=== PATIENT | male | born 1990 | race Caucasian/White ===

== ENCOUNTER 2021-05-03 20:57 | Emergency (ER) | payer OTHER ==
--- NOTE | 2021-05-03 21:47 | XRAY Report ---
PROCEDURE: Shoulder 3 View LT INDICATIONS: fall with shoulder injury TECHNIQUE: 3 views of the shoulder were acquired. COMPARISON: None. FINDINGS: Bones: No fractures or dislocations. No suspicious bony lesions. Visualized ribs appear intact. Soft tissues: No suspicious soft tissue calcifications. IMPRESSION: No visualized acute fracture or dislocation. However, occult injury cannot be excluded. Recommend short interval imaging follow-up in 7-10 days as clinically indicated for additional evalua tion. Reviewed by: Sherly Davis MD on 05/03/2021 9:46 PM PDT Approved by: Sherly Davis MD on 05/03/2021 9:46 PM PDT Station ID: [id number]
--- NOTE | 2021-05-03 22:02 | ED Physician Documentation ---
PD HPI UPPER EXT INJURY - Stated complaint Stated Complaint: LT SHOULDER INJ - Chief complaint Chief Complaint: Ext Problem - History obtained from History obtained from: Patient - History of Present Illness Location: Left, Shoulder Type of injury: Fall (Playing soccer and fell onto the left shoulder with pain in the scapula and AC area. Hurts to breathe and move the shoulder. 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) Timing - details: Abrupt onset, Still present Worsened by: Moving, Palpating (left posterior shoulder and AC area), Other (hurts scapular area with breathing as well.) Associated symptoms: No: Weakness, Numbness Similar symptoms before: Has not had sx before Review of Systems Constitutional: denies: Fever, Chills Nose: denies: Rhinorrhea / runny nose, Congestion Throat: denies: Sore throat Cardiac: denies: Chest pain / pressure Respiratory: denies: Cough Musculoskeletal: denies: Neck pain Neurologic: denies: Focal weakness, Numbness, Altered mental status, Headache PD PAST MEDICAL HISTORY - Past Medical History Past Medical History: No - Allergies Allergies/Adverse Reactions: Allergies Allergy/AdvReac Type Severity Reaction Status Date / Time No Known Drug Allergies Allergy Verified 05/03/21 21:01 PD ED PE NORMAL - Vitals Vital signs reviewed: Yes - General General: Alert and oriented X 3, Well developed/nourished, Other (Holding his left arm dangling straight downwards without movement of the left shoulder as this causes pain.) - Neck Neck: Supple, no meningeal sign, No bony TTP - Respiratory Respiratory: Clear bilaterally, Other (No rib tenderness. There is some tenderness in the suprascapular area.) - Derm Derm: Normal color, Warm and dry - Extremities Extremities: Other (He is tender in the AC joint with a mild step-off in that location. There is also some suprascapular and posterior shoulder tenderness. Limited range of motion due to pain. Passive range of motion without any gross laxity. 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 Lungs and ribs appear normal in the area. ), See rad report PD MEDICAL DECISION MAKING - ED course Complexity details: considered differential (Seems likely some AC injury as well as some rotator cuff injury given pain in the scapula to shoulder area and hurting with range of motion.), d/w patient Departure - Departure Disposition: 01 Home, Self Care Clinical Impression: AC separation Qualifiers: Encounter type: initial encounter Laterality: left Qualified Code(s): S43.102A - Unspecified dislocation of left acromioclavicular joint, initial encounter Rotator cuff strain Qualifiers: Encounter type: initial encounter Laterality: left Qualified Code(s): S46.012A - Strain of muscle(s) and tendon(s) of the rotator cuff of left shoulder, initial encounter Condition: Stable Record reviewed to determine appropriate education?: Yes Instructions: ED Sprain AC Joint, ED Torn Rotator Cuff Follow-Up: [facility] [Provider Group] Comments: Use the sling to support the shoulder. Minimal gentle range of motion periodically to reduce stiffness of the shoulder. In particular no reaching above shoulder height, lifting, push pull or rotation with the shoulder for the next week. Follow-up with your primary care in about a week to reevaluate the shoulder once the initial pain and inflammation have improved. Use some anti-inflammatory such as ibuprofen 3 times a day. To that add Tylenol every 4 hours if needed for pain. We did send you home with 4 opioid pain pills to use every 6 hours if needed. This should last the first day or 2 and then ibuprofen or Tylenol should be sufficient from there. Your x-ray does not show any fractures. It does appear likely there is some mild separation of the AC ligaments. Given your pain location, I would also think you may have some rotator cuff injury as well. This is likely to be a 3 or 4-week healing process but you would want to follow-up with your primary care or orthopedics in about a week to assess. Discharge Date/Time: 05/03/21 22:36
[2021-05-03] MEDS ORDERED: ACETAMINOPHEN 325 MG TABLET PO STA (22:16)
[2021-05-03] MEDS ORDERED: HYDROcod/ACET 5/325 Prepack 4 PO STA (22:16)
[2021-05-03] MEDS ORDERED: IBUPROFEN 600 MG TABLET PO STA (22:16)
[2021-05-03 22:38] VITALS: BP 135/84
== END 2021-05-03 22:36 | disposition home or self-care (01) ==
LOC: ED 20:57
DX: S43.102A Unspecified dislocation of left acromioclavicular joint, initial encounter (principal); S46.012A Strain of muscle(s) and tendon(s) of the rotator cuff of left shoulder, initial encounter; W18.30XA Fall on same level, unspecified, initial encounter; Y93.66 Activity, soccer; Y92.830 Public park as the place of occurrence of the external cause
CPT/HCPCS: 73030; 99282; 99283; A9270

== ENCOUNTER 2022-01-19 22:22 | Emergency (ER) | payer OTHER ==
[2022-01-19] MEDS ORDERED: LIDOCAINE 1% 2 ML VIAL MC ONE (23:04)
[2022-01-19] MEDS ORDERED: DEXAMETHASONE 10 MG/ML VIAL PO STA (23:04)
[2022-01-19] MEDS ORDERED: CHERRY SYRUP 10 ML UDC PO ONE (23:04)
[2022-01-19] MEDS ORDERED: cefTRIAXone 1 GM VIAL IM STA (23:04)
--- NOTE | 2022-01-19 23:09 | ED Physician Documentation ---
PD HPI HEENT - Stated complaint Stated Complaint: STIFF NECK/FLU SYMPTOMS - Chief complaint Chief Complaint: General - History obtained from History obtained from: Patient, Family - History of Present Illness Timing - onset: How many months ago (3) Timing - duration: Weeks (1) Timing - details: Gradual onset, Still present, Waxing and waning Location: Sinuses Improves: Medication Associated symptoms: Fever, Congestion, Rhinorrhea, Headache, Cough, Other (stiff neck and coughing up yellow and green phlem) Similar symptoms before: Diagnosis (sinusitis) Recently seen: Not recently seen - Additional information Additional information: 31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 He had sinus congestion cough and production of yellow and green phlegm and he was treated with amoxicillin. He felt his symptoms improved somewhat but have since undulated in their symptomatology and he has sought follow-up. He notes that over the past week he has had a marked increase in his symptoms. He now has an appointment to see the ENT in 1 week. He felt today that with the fever and increasing symptoms he did not want to wait to be seen. He has tested for COVID and is negative. Review of Systems Constitutional: reports: Fever Eyes: denies: Decreased vision, Photophobia Ears: denies: Ear pain Nose: reports: Rhinorrhea / runny nose, Congestion, Sinus pressure / pain Throat: reports: Dental pain / toothache. denies: Sore throat Cardiac: denies: Chest pain / pressure, Palpitations Respiratory: reports: Cough. denies: Dyspnea GI: denies: Vomiting, Diarrhea PD PAST MEDICAL HISTORY - Past Surgical History Past Surgical History: No - Present Medications Home Medications: Ambulatory Orders Medication Instructions Recorded Confirmed Amox/Clav 875/125 [Augmentin] 1 each PO Q12H #20 tablet 01/19/22 Fexofenadine/Pseudoephedrine 1 tab PO DAILY 01/19/22 01/19/22 [Fexofenadine-Pse ER 180-240 Tb] - Allergies Allergies/Adverse Reactions: Allergies Allergy/AdvReac Type Severity Reaction Status Date / Time No Known Drug Allergies Allergy Verified 01/19/22 22:33 - Social History Does the pt smoke?: No Smoking Status: Never smoker PD ED PE NORMAL - Vitals Vital signs reviewed: Yes (Hypertensive but afebrile here) - General General: Alert and oriented X 3, No acute distress, Well developed/nourished, Other (The patient is warm to the touch) - HEENT HEENT: Atraumatic, PERRL, EOMI, Pharynx benign, Dentition benign, Other (Minimal inflammation to both TMs there is sinus point tenderness to the maxillary sinuses and frontal sinuses bilaterally.) - Neck Neck: Supple, no meningeal sign, No bony TTP - Cardiac Cardiac: RRR, No murmur - Respiratory Respiratory: No respiratory distress, Clear bilaterally - Abdomen Abdomen: Soft, Non tender - Back Back: No CVA TTP, No spinal TTP - Derm Derm: Normal color, Warm and dry, No rash - Extremities Extremities: No deformity, No edema - Neuro Neuro: Alert and oriented X 3, 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, No motor deficit, No sensory deficit, Normal speech Eye Opening: Spontaneous Motor: Obeys Commands Verbal: Oriented GCS Score: 15 - Psych Psych: Normal mood, Normal affect Results - Vitals Vitals: Vital Signs - 24 hr 01/19/22 22:26 Temperature 37.1 C Heart Rate 77 Respiratory 18 Rate Blood Pressure 134/95 H O2 Saturation 97 Oxygen O2 Source Room air PD MEDICAL DECISION MAKING - ED course Complexity details: considered differential, d/w patient, d/w family ED course: 31-year-old male with sinus infection that has undulated over the past months now has more acute symptoms and he has fever as well as sinus point tenderness and coughing up yellow and green phlegm. Here in the emergency department we have treated him with dexamethasone and a gram of Rocephin IM. I discussed with the patient aggressive treatment of his sinusitis with Augmentin and a decongestant as well and a follow-up with ENT as he may need to have an extended course of antibiotic or drainage procedure. I did discuss with the patient the importance of drainage and the reason we provided the dexamethasone . Departure - Departure Disposition: 01 Home, Self Care Clinical Impression: Sinusitis Qualifiers: Sinusitis location: maxillary Chronicity: acute Recurrence: recurrent Qualified Code(s): J01.01 - Acute recurrent maxillary sinusitis Condition: Stable Instructions: ED Sinusitis Abx Tx Follow-Up: [facility] [Provider Group] Prescriptions: Amox/Clav 875/125 [Augmentin] 1 each PO Q12H #20 tablet Comments: Nima today we have given you a dose of dexamethasone as a decongestant and a injection of Rocephin as a broad-spectrum antibiotic. I have E scribed some Augmentin to [facility] [address]. The recommendation is to begin taking this tomorrow twice per day and take a decongestant such as Sudafed while you are on the antibiotic. I highly recommend follow-up with ear nose and throat as you may need to have an extended course of antibiotic, a course of steroid or a drainage procedure.
[2022-01-19 23:29] VITALS: BP 122/78
== END 2022-01-19 23:34 | disposition home or self-care (01) ==
LOC: ED 22:22
DX: J01.01 Acute recurrent maxillary sinusitis (principal)
CPT/HCPCS: 96372; 99283; 99284; A9270

== ENCOUNTER 2022-01-21 15:28 | Emergency (ER) | payer OTHER ==
[2022-01-21 15:34] VITALS: BP 133/75
--- NOTE | 2022-01-21 15:34 | ED Physician Documentation ---
PD HPI URI - Stated complaint Stated Complaint: FEVER,FATIGUE,SORE - Chief complaint Chief Complaint: Fever - History obtained from History obtained from: Patient - History of Present Illness Timing - onset: How many days ago (4-5) Timing duration: Days (4-5) Timing details: Abrupt onset, Still present (still worsening with increased drainage and sinus pressure, and having fever last night as well.) Associated symptoms: Fever (last night), Sinus pain (right sphenoid and frontal) Contributing factors: Travel ([place] for training, returned 2 weeks ago.). No: Sick contact Recently seen: Clinic (about 6 weeks ago for similar sinus infection and Rx wtih Amoxicillin and did improve symptoms at that time but not completely resolved. Lingering congestion and some purulent drainage and pressure that has increased now the last 5 or 6 days.), Emergency Dept (Patient was seen 2 days ago for similar symptoms and prescribed Augmentin. He states he felt slightly better that afternoon but increased symptoms and now fevers overnight. Denies cough or new congestion.) Review of Systems Constitutional: reports: Fever Nose: reports: Congestion (with purulent drainage mainly right side), Sinus pressure / pain Throat: denies: Dental pain / toothache, Sore throat Respiratory: reports: Cough (mild). denies: Dyspnea GI: denies: Nausea, Vomiting, Diarrhea Skin: denies: Rash PD PAST MEDICAL HISTORY - Past Medical History Cardiovascular: None Respiratory: None Neuro: None Endocrine/Autoimmune: None - Past Surgical History Past Surgical History: No - Present Medications Home Medications: Ambulatory Orders Medication Instructions Recorded Confirmed Amox/Clav 875/125 [Augmentin] 1 each PO Q12H #20 tablet 01/19/22 01/21/22 Fexofenadine/Pseudoephedrine 1 tab PO DAILY 01/19/22 01/21/22 [Fexofenadine-Pse ER 180-240 Tb] Cetirizine [ZyrTEC] 10 mg PO DAILY #15 tablet 01/21/22 Doxycycline Hyclate 100 mg PO BID 7 Days #14 cap 01/21/22 - Allergies Allergies/Adverse Reactions: Allergies Allergy/AdvReac Type Severity Reaction Status Date / Time No Known Drug Allergies Allergy Verified 01/21/22 15:31 - Social History Does the pt smoke?: No Smoking Status: Never smoker PD ED PE NORMAL - Vitals Vital signs reviewed: Yes - General General: Alert and oriented X 3, No acute distress, Well developed/nourished - HEENT HEENT: PERRL, EOMI, Ears normal, Moist mucous membranes, Pharynx benign, Other (not tender around mastoid.) - Neck Neck: Supple, no meningeal sign, No adenopathy - Cardiac Cardiac: RRR, No murmur - Respiratory Respiratory: Clear bilaterally Results - Vitals Vitals: Vital Signs - 24 hr 01/21/22 15:31 Temperature 37.6 C Heart Rate 97 Respiratory 16 Rate Blood Pressure 133/75 H O2 Saturation 100 Oxygen O2 Source Room air PD MEDICAL DECISION MAKING - ED course Complexity details: considered differential (Patient states recurrent and worsening sinusitis symptoms despite 2 days of the Augmentin. Had previously been on amoxicillin with incomplete resolution several weeks ago. Consider partial resistance and per up to date I would change him to doxycycline.), d/w patient Departure - Departure Disposition: 01 Home, Self Care Clinical Impression: Sinusitis Qualifiers: Sinusitis location: unspecified location Chronicity: subacute Qualified Code(s): J01.90 - Acute sinusitis, unspecified Condition: Stable Record reviewed to determine appropriate education?: Yes Prescriptions: Doxycycline Hyclate 100 mg PO BID 7 Days #14 cap Cetirizine [ZyrTEC] 10 mg PO DAILY #15 tablet Comments: It is possible that you have another illness or virus on top the recent sinus infection causing your increased symptoms. However it does seem more likely that your sinus infection is worsening despite the current antibiotics. Since you have been on amoxicillin fairly recently (just over a month ago), consideration would be some partial resistance to the amoxicillin/clavulanic acid. As such I would suggest changing from the Augmentin to doxycycline twice daily for a week. Continue the saline nasal spray periodically to help clear the nostrils and moisturize him. Perhaps less Sudafed. Consider just a basic antihistamine such as cetirizine. Tylenol or ibuprofen if needed for pains or fevers. Recheck if not improving well over the next several days. I sent your prescription to [facility] in [place].
[2022-01-21] MEDS ORDERED: DOXYCYCLINE 100 MG TABLET PO STA (16:10)
== END 2022-01-21 16:29 | disposition home or self-care (01) ==
LOC: ED 15:28
DX: J01.90 Acute sinusitis, unspecified (principal)
CPT/HCPCS: 99282; A9270

== ENCOUNTER 2022-01-25 10:24 | Emergency (ER) | payer OTHER ==
[2022-01-25 10:52] VITALS: BP 129/81
--- NOTE | 2022-01-25 15:16 | ED Physician Documentation ---
History of Present Illness - Stated complaint Stated Complaint: FEVER/CHILLS/STIFF NECK - Chief complaint Chief Complaint: General - History obtained from History obtained from: Patient - History of Present Illness Pain level max: 3 Pain level now: 2 - Additonal information Additional information: Patient states intermittent illnesses for the past 2 months. He states recently he has developed fevers and chills. 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 He states he only feels that he has a fever at night. Mild cough. Mild sore throat. Has been on antibiotics for potential "sinus infection". Nothing makes it better or worse. No abdominal pain. No vomiting. No diarrhea. No constipation. Patient states intermittent fevers over the past 10 days or so. The fevers are not every day. Usually the fevers cause him to break out in a sweat at night. Review of Systems Ten Systems: 10 systems reviewed and negative Constitutional: reports: Fever (101 tmax) Ears: denies: Ear pain Nose: denies: Rhinorrhea / runny nose, Congestion Respiratory: denies: Dyspnea GI: denies: Nausea, Vomiting, Diarrhea : denies: Dysuria, Frequency, Hesitancy Skin: denies: Rash Musculoskeletal: denies: Neck pain, Back pain Neurologic: denies: Headache PD PAST MEDICAL HISTORY - Past Medical History Past Medical History: Yes Cardiovascular: None Respiratory: None Neuro: None Endocrine/Autoimmune: None - Past Surgical History Past Surgical History: No - Present Medications Home Medications: Ambulatory Orders Medication Instructions Recorded Confirmed Amox/Clav 875/125 [Augmentin] 1 each PO Q12H #20 tablet 01/19/22 01/21/22 Fexofenadine/Pseudoephedrine 1 tab PO DAILY 01/19/22 01/21/22 [Fexofenadine-Pse ER 180-240 Tb] Cetirizine [ZyrTEC] 10 mg PO DAILY #15 tablet 01/21/22 Doxycycline Hyclate 100 mg PO BID 7 Days #14 cap 01/21/22 - Allergies Allergies/Adverse Reactions: Allergies Allergy/AdvReac Type Severity Reaction Status Date / Time No Known Drug Allergies Allergy Verified 01/25/22 10:53 - Social History Does the pt smoke?: No Smoking Status: Never smoker Does the pt drink ETOH?: Yes Does the pt have substance abuse?: No PD ED PE NORMAL - Vitals Vital signs reviewed: Yes - General General: Alert and oriented X 3, No acute distress, Well developed/nourished - HEENT HEENT: PERRL, Ears normal, Moist mucous membranes, Pharynx benign - Neck Neck: Supple, no meningeal sign, No adenopathy - Cardiac Cardiac: RRR, Strong equal pulses - Respiratory Respiratory: No respiratory distress, Clear bilaterally - Abdomen Abdomen: Soft, Non tender, Non distended - Back Back: No spinal TTP - Derm Derm: Warm and dry - Neuro Neuro: Alert and oriented X 3 - Psych Psych: Normal mood, Normal affect Results - Vitals Vitals: Vital Signs - 24 hr 01/25/22 10:48 Temperature 36.5 C Heart Rate 76 Respiratory 14 Rate Blood Pressure 129/81 H O2 Saturation 100 Oxygen O2 Source Room air - Labs Labs: Laboratory Tests 01/25/22 01/25/22 01/25/22 15:01 15:09 15:26 WBC 6.8 RBC 5.49 Hgb 16.9 Hct 49.5 MCV 90.2 MCH 30.8 MCHC 34.1 RDW 12.2 Plt Count 241 MPV 10.7 Neut # (Auto) Not Reportable Lymph # (Auto) Not Reportable Hart # (Auto) Not Reportable Eos # (Auto) Not Reportable Baso # (Auto) Not Reportable Absolute Nucleated RBC Not Reportable Total Counted 100 Band Neuts % (Manual) 3 Abnorm Lymph % (Manual) 0 Nucleated RBC % Not Reportable Neutrophils # (Manual) 3.9 Lymphocytes # (Manual) 1.9 Monocytes # (Manual) 1.0 Eosinophils # (Manual) 0.0 Basophils # (Manual) 0.0 Differential Comment MANUAL DIFFERENTIAL Manual Slide Review Indicated Platelet Estimate NORMAL (130-450,000) Platelet Morphology NORMAL APPEARANCE RBC Morph Micro Appear NORMAL APPEARANCE Sodium Potassium Chloride Carbon Dioxide Anion Gap BUN Creatinine Estimated GFR (MDRD) Glucose Lactic Acid Calcium Total Bilirubin AST ALT Alkaline Phosphatase Total Protein Albumin Globulin Albumin/Globulin Ratio Nasal Adenovirus (PCR) NOT DETECTED Nasal B. parapertussis DNA (PCR) NOT DETECTED Nasal Coronavir 229E PCR NOT DETECTED Nasal Coronavir HKU1 PCR NOT DETECTED Nasal Coronavir NL63 PCR NOT DETECTED Nasal Coronavir OC43 PCR NOT DETECTED Nasal Enterovir/Rhinovir PCR NOT DETECTED Nasal Influenza B PCR NOT DETECTED Nasal Influenza A PCR NOT DETECTED Nasal Parainfluen 1 PCR NOT DETECTED Nasal Parainfluen 2 PCR NOT DETECTED Nasal Parainfluen 3 PCR NOT DETECTED Nasal Parainfluen 4 PCR NOT DETECTED Nasal RSV (PCR) NOT DETECTED Nasal B.pertussis DNA PCR NOT DETECTED Nasal C.pneumoniae (PCR) NOT DETECTED Jim Human Metapneumo PCR NOT DETECTED Nasal M.pneumoniae (PCR) NOT DETECTED Nasal SARS-CoV-2 (PCR) NOT DETECTED Group A Strep Rapid Negative 01/25/22 01/25/22 15:26 15:32 WBC RBC Hgb Hct MCV MCH MCHC RDW Plt Count MPV Neut # (Auto) Lymph # (Auto) Hart # (Auto) Eos # (Auto) Baso # (Auto) Absolute Nucleated RBC Total Counted Band Neuts % (Manual) Abnorm Lymph % (Manual) Nucleated RBC % Neutrophils # (Manual) Lymphocytes # (Manual) Monocytes # (Manual) Eosinophils # (Manual) Basophils # (Manual) Differential Comment Manual Slide Review Platelet Estimate Platelet Morphology RBC Morph Micro Appear Sodium 139 Potassium 4.0 Chloride 99 L Carbon Dioxide 27 Anion Gap 13.0 BUN 8 Creatinine 1.1 Estimated GFR (MDRD) 79 L Glucose 96 Lactic Acid 1.1 Calcium 9.8 Total Bilirubin 1.0 AST 103 H ALT 98 H Alkaline Phosphatase 80 Total Protein 8.6 H Albumin 4.5 Globulin 4.1 Albumin/Globulin Ratio 1.1 Nasal Adenovirus (PCR) Nasal B. parapertussis DNA (PCR) Nasal Coronavir 229E PCR Nasal Coronavir HKU1 PCR Nasal Coronavir NL63 PCR Nasal Coronavir OC43 PCR Nasal Enterovir/Rhinovir PCR Nasal Influenza B PCR Nasal Influenza A PCR Nasal Parainfluen 1 PCR Nasal Parainfluen 2 PCR Nasal Parainfluen 3 PCR Nasal Parainfluen 4 PCR Nasal RSV (PCR) Nasal B.pertussis DNA PCR Nasal C.pneumoniae (PCR) Jim Human Metapneumo PCR Nasal M.pneumoniae (PCR) Nasal SARS-CoV-2 (PCR) Group A Strep Rapid - Rads (name of study) Chest x-ray Radiology: Final report received, EMP read contemporaneously, See rad report (No acute abnormality) PD MEDICAL DECISION MAKING - ED course Complexity details: reviewed results, re-evaluated patient, considered differential, d/w patient, d/w family ED course: 31-year-old male sent in for continued fevers. No significant lab abnormalities. No significant physical exam findings. No acute findings on chest x-ray, laboratory testing. Blood cultures were sent as well. Respiratory panel is negative. Likely viral syndrome. We will have him follow-up with his doctor for further care. Patient is very well-appearing, nontoxic. Afebrile here. Patient and family counseled regarding signs and symptoms for which I believe and urgent re-evaluation would be necessary. Patient with good understanding of and agreement to plan and is comfortable going home at this time This document was made in part using voice recognition software. While efforts are made to proofread this document, sound alike and grammatical errors may occur. Departure - Departure Disposition: 01 Home, Self Care Clinical Impression: Viral syndrome Fever Qualifiers: Fever type: unspecified Qualified Code(s): R50.9 - Fever, unspecified Condition: Good Instructions: ED Fever Unconf Cause, ED Viral Syndrome Follow-Up: Your,doctor in 1 week [Other] Comments: The cause of your symptoms is unclear today. Please follow-up with your doctor tomorrow for further care. Your CBC, CMP, lactate, respiratory viral panel and strep test are all normal other than a mild elevation in your AST and ALT, 103 and 98 respectively. You do have 2 blood cultures pending and we will call you if these are positive. I would continue your current antibiotics at home. Your chest x-ray is also normal. You can use Motrin or Tylenol as needed at home. Return if you worsen Discharge Date/Time: 01/25/22 17:15
[2022-01-25 15:33] LABS: RAPID STREP SCREEN Negative (Negative)
--- NOTE | 2022-01-25 15:35 | XRAY Report ---
PROCEDURE: Chest 2 View X-Ray INDICATIONS: cough, fever TECHNIQUE: 2 view(s) of the chest. COMPARISON: None. FINDINGS: Surgical changes and devices: None. Lungs and pleura: No pleural effusions or pneumothorax. Lungs are clear. Mediastinum: Mediastinal contours are normal. Heart size is normal. Bones and chest wall: No suspicious bony abnormalities. Soft tissues appear unremarkable. IMPRESSION: No acute pulmonary process. Reviewed by: Sherly Davis MD on 01/25/2022 3:33 PM PDT Approved by: Sherly Davis MD on 01/25/2022 3:33 PM PDT Station ID: [id number]
[2022-01-25 15:38] LABS: BASOPHILS % (AUTO) 0.9 %
[2022-01-25 15:47] LABS: EOSINOPHILS % (AUTO) 0.9 %; HCT - HEMATOCRIT 49.5 % (42.0-52.0); HGB - HEMOGLOBIN 16.9 g/dL (14.0-18.0); LYMPHOCYTES % (AUTO) 40.7 %; MEAN CORPUSCULAR HEMOGLOBIN 30.8 pg (27.0-31.0); MEAN CORPUSCULAR HGB CONC 34.1 g/dL (32.0-36.0); MEAN CORPUSCULAR VOLUME 90.2 fL (80.0-94.0); MEAN PLATELET VOLUME 10.7 fL (7.4-11.4); MONOCYTES % (AUTO) 7.9 %; NEUTROPHILS % (AUTO) 49.3 %; PLT - PLATELET COUNT 241 10^3/uL (130-450); RED BLOOD COUNT 5.49 10^6/uL (4.70-6.10); RED CELL DISTRIBUTION WIDTH 12.2 % (12.0-15.0); WHITE BLOOD COUNT 6.8 x10^3/uL (4.8-10.8)
[2022-01-25 15:51] LABS: ALBUMIN 4.5 g/dL (3.2-5.5); ALBUMIN/GLOBULIN RATIO 1.1 (1.0-2.2); CALCIUM 9.8 mg/dL (8.5-10.3); CREATININE 1.1 mg/dL (0.6-1.2); TOTAL PROTEIN 8.6 g/dL (6.7-8.2)
[2022-01-25 15:57] LABS: SLIDE REVIEW? Indicated
[2022-01-25 16:08] LABS: ABNORMAL LYMPHS % (MANUAL) 0 %
[2022-01-25 16:11] LABS: B. PARAPERTUSSIS- RESP PCR PAN NOT DETECTED; B. PERTUSSIS- RESP PCR PANEL NOT DETECTED; C. PNEUMONIAE- RESP PCR PANEL NOT DETECTED; CORONAVIRUS 229E-RESP PCR NOT DETECTED; CORONAVIRUS HKU1-RESP PCR NOT DETECTED; CORONAVIRUS NL63-RESP PCR NOT DETECTED; CORONAVIRUS OC43-RESP PCR NOT DETECTED; HUMAN METAPNEUMOVIRUS NOT DETECTED; INFLUENZA A- RESP PCR PANEL NOT DETECTED; INFLUENZA B - RESP PCR PANEL NOT DETECTED; M. PNEUMONIAE- RESP PCR PANEL NOT DETECTED; PARAINFLUENZA VIRUS 1 NOT DETECTED; PARAINFLUENZA VIRUS 2 NOT DETECTED; PARAINFLUENZA VIRUS 3 NOT DETECTED; PARAINFLUENZA VIRUS 4 NOT DETECTED; RHINOVIRUS/ENTEROVIRUS NOT DETECTED; RSV- RESP PCR PANEL NOT DETECTED; SARS-CoV-2 -RESP PCR PANEL NOT DETECTED
[2022-01-25 16:12] LABS: BAND NEUTROPHILS % (MANUAL) 3 %; DIFFERENTIAL COMMENT MANUAL DIFFERENTIAL; LYMPHOCYTES # (MANUAL) 1.9 10^3/uL (1.5-3.5); LYMPHOCYTES % (MANUAL) 28 %; NEUTROPHILS # (MANUAL) 3.9 10^3/uL (1.5-6.6); PLATELET ESTIMATE, MANUAL NORMAL (130-450,000) (NORMAL); PLATELET MORPHOLOGY NORMAL APPEARANCE (NORMAL); RBC MORPHOLOGY (MULTIPLE) NORMAL APPEARANCE (NORMAL)
== END 2022-01-25 17:15 | disposition home or self-care (01) ==
LOC: ED 10:24
DX: B34.9 Viral infection, unspecified (principal); Z20.822 Contact with and (suspected) exposure to COVID-19
CPT/HCPCS: 36415; 80053; 83605; 85025; 87040; 87070; 87430; 87633; 99282; 99283

== ENCOUNTER 2022-10-29 23:27 | Emergency (ER) | payer OTHER ==
--- NOTE | 2022-10-30 02:34 | ED Physician Documentation ---
PD HPI SKIN - Stated complaint Stated Complaint: RT EYEBROW LAC - Chief complaint Chief Complaint: Trauma Hd/Nk - History obtained from History obtained from: Patient - Additional information Additional information: 32-year-old man presented with hockey-stick to the face with right eyebrow laceration. He states his tetanus is up-to-date. Denies vision changes or other injury. PD PAST MEDICAL HISTORY - Past Medical History Past Medical History: No Cardiovascular: None Respiratory: None Neuro: None Endocrine/Autoimmune: None - Past Surgical History Past Surgical History: Yes Ortho: Other - Present Medications Home Medications: Ambulatory Orders Medication Instructions Recorded Confirmed Amox/Clav 875/125 [Augmentin] 1 each PO Q12H #20 tablet 01/19/22 01/21/22 Fexofenadine/Pseudoephedrine 1 tab PO DAILY 01/19/22 01/21/22 [Fexofenadine-Pse ER 180-240 Tb] Cetirizine [ZyrTEC] 10 mg PO DAILY #15 tablet 01/21/22 Doxycycline Hyclate 100 mg PO BID 7 Days #14 cap 01/21/22 - Allergies Allergies/Adverse Reactions: Allergies Allergy/AdvReac Type Severity Reaction Status Date / Time No Known Drug Allergies Allergy Verified 01/25/22 10:53 - Social History Does the pt smoke?: No Smoking Status: Never smoker Does the pt drink ETOH?: Yes Does the pt have substance abuse?: No - Immunizations Immunizations are current?: Yes - POLST Patient has POLST: No PD ED PE NORMAL - Vitals Vital signs reviewed: Yes - General General: Alert and oriented X 3, No acute distress, Well developed/nourished - HEENT HEENT: Atraumatic, PERRL, EOMI - Derm Derm: Normal color, Warm and dry, Other (1 cm laceration to medial right brow line. no foreign body) Results - Vitals Vitals: Vital Signs - 24 hr 10/30/ 00:00 Temperature 36.3 C L Heart Rate 64 Respiratory 14 Rate Blood Pressure 130/79 O2 Saturation 99 Oxygen O2 Source Room air Procedures - Laceration (location) Face right Length in cm: 2 Wound type: Linear Neurovascular status: Sensory intact, Motor intact, Vascular intact Anesthesia: Lidocaine 1% with epi Wound preparation: Irrigated copiously NS Skin layer closure: Nylon, Size #-0 - enter number (6), Sutures - enter # (3) Other: Patient tolerated well, No complications, Neurovascular intact, Dressing applied, Tetanus UTD PD Medical Decision Making - ED course ED course: 32-year-old man presented with eyebrow laceration that was repaired without difficulty. Home care discussed and return precautions given. He will follow- up for suture removal in 3 to 5 days. Departure - Departure Disposition: 01 Home, Self Care Clinical Impression: Eyebrow laceration Condition: Good Instructions: ED Laceration Facial Sutr Tape Comments: You were seen in the emergency department for a cut on the eyebrow. 3 stitches were placed that need to be removed in 3 to 5 days. You can do this at urgent care, in the emergency room, or you can call your primary care provider and see if they do it.Monitor for signs of infection and return to the emergency department if you have other concerns. Keep the dressing dry for 24 hours then pat clean with soap and water thereafter.
[2022-10-30 02:44] VITALS: BP 130/72
== END 2022-10-30 01:40 | disposition home or self-care (01) ==
LOC: ED 23:27
DX: S01.111A Laceration without foreign body of right eyelid and periocular area, initial encounter (principal); W21.210A Struck by ice hockey stick, initial encounter; Y93.22 Activity, ice hockey
CPT/HCPCS: 12011; 99281